=== PATIENT | male | born 1950 | race Caucasian/White ===

== ENCOUNTER → 2021-07-23 12:20 | Outpatient (BNVA) | payer MEDICARE, SELFPAY | PROVIDERS: Visit Provider Specialist | DX: R53.1 Weakness (principal); G56.01 Carpal tunnel syndrome, right upper limb; I69.398 Other sequelae of cerebral infarction; G40.909 Epilepsy, unspecified, not intractable, without status epilepticus; Z99.3 Dependence on wheelchair | CPT/HCPCS: 99204 ==

== ENCOUNTER → 2022-04-11 12:51 | Outpatient (BNVA) | payer MEDICARE, SELFPAY | PROVIDERS: PCP Nurse Practitioner Family; Referring Provider Specialist; Visit Provider Specialist | DX: G56.21 Lesion of ulnar nerve, right upper limb (principal); G56.01 Carpal tunnel syndrome, right upper limb; G40.909 Epilepsy, unspecified, not intractable, without status epilepticus; G43.711 Chronic migraine without aura, intractable, with status migrainosus; J38.00 Paralysis of vocal cords and larynx, unspecified; I69.398 Other sequelae of cerebral infarction; Z99.3 Dependence on wheelchair | CPT/HCPCS: 95910; 99214 ==